=== PATIENT | male | born 1980 | race Caucasian/White ===

== ENCOUNTER 2020-06-20 18:43 | Emergency (ER) | payer SELFPAY ==
--- NOTE | 2020-06-20 20:11 | ER ---
Nurse's Notes [facility] Name: Jeff Colón Age: 39 yrs Sex: Male : 1980 Arrival Date: 06/20/2020 Time: 18:46 Bed 6 Private MD: Diagnosis: Nonspecific Skin Rash Presentation: 06/20 18:50 Chief complaint: Patient states: "bumps on whole body, ruptures with little egg things, em the more you push on them, it causes a lesion, I think I need IV antibiotics" denies fever. Coronavirus screen: Patient denies a cough. Patient denies shortness of breath or difficulty breathing. Patient denies measured and/or subjective temperature greater than 100.4F prior to today's visit. Patient denies travel on a cruise ship or to a country the [facility] currently lists as an affected area. Patient denies contact with known and/or suspected case of COVID-19. Ebola Screen: Patient negative for fever greater than or equal to 101.5 degrees Fahrenheit, and additional compatible Ebola Virus Disease symptoms Patient denies exposure to infectious person. Patient denies travel to an Ebola-affected area in the 21 days before illness onset. No symptoms or risks identified at this time. Initial Sepsis Screen: Does the patient meet any 2 criteria? HR > 90 bpm. Does the patient have a suspected source of infection? Yes: Skin breakdown/wound. Risk Assessment: Do you want to hurt yourself or someone else? Patient reports no desire to harm self or others. Onset of symptoms was June 18, 2020. 18:50 Method Of Arrival: Ambulatory em 18:50 Acuity: JERO 4 em Historical: - Allergies: 18:53 No Known Allergies; em - Home Meds: 18:53 None [Active]; em - PMHx: 18:53 None; em - Immunization history:: Adult Immunizations. - Social history:: Smoking status: Patient reports the use of cigarette tobacco products, smokes one-half pack cigarettes per day, Patient uses alcohol, occasionally. Patient/guardian denies using street drugs. Screenin:37 Abuse screen: Denies threats or abuse. Denies injuries from another. Nutritional mg2 screening: No deficits noted. Tuberculosis screening: No symptoms or risk factors identified. Fall Risk None identified. Assessment: 19:36 General: Appears in no apparent distress. comfortable, Behavior is calm, cooperative. mg2 Pain: Denies pain. Neuro: Level of Consciousness is awake, alert, obeys commands, Oriented to person, place, time, situation. Cardiovascular: Capillary refill < 3 seconds Patient's skin is warm and dry. Respiratory: Airway is patent Respiratory effort is even, unlabored, Respiratory pattern is regular, symmetrical. GI: No signs and/or symptoms were reported involving the gastrointestinal system. : No signs and/or symptoms were reported regarding the genitourinary system. EENT: No signs and/or symptoms were reported regarding the EENT system. Derm: Rash noted that is red, raised, on face. Musculoskeletal: Circulation, motion, and sensation intact. Capillary refill < 3 seconds. Vital Signs: 18:50 Pulse 110; Resp 20; Temp 98.1(O); Pulse Ox 100% on R/A; Weight 62.6 kg; Height 5 ft. 4 em in. (162.56 cm); Pain 0/10; 20:02 BP 162 / 97; mg2 20:02 Pulse 102; Resp 18; Pulse Ox 100% on R/A; mg2 18:50 Body Mass Index 23.69 (62.60 kg, 162.56 cm) em ED Course: 18:46 Patient arrived in ED. ag5 18:53 Triage completed. em 18:53 Arm band placed on. em 19:05 Jewel Lebron MD is Attending Physician. mh7 19:36 Marcelo Holley, RN is Primary Nurse. mg2 19:37 Patient has correct armband on for positive identification. Door closed. mg2 19:37 No provider procedures requiring assistance completed. mg2 20:10 Joey Melendez MD is Referral Physician. mh7 20:47 Patient did not have IV access during this emergency room visit. mg2 Administered Medications: 20:35 Drug: KeFLEX 500 mg Route: PO; ls4 20:46 Follow up: Response: No adverse reaction; Medication administered at discharge. mg2 20:37 Drug: Bactrim (160 mg-800 mg (DS) 1 tablet Route: PO; ls4 20:46 Follow up: Response: No adverse reaction; Medication administered at discharge. mg2 Outcome: 20:11 Discharge ordered by . mh7 20:47 Discharged to home ambulatory. mg2 20:47 Condition: stable 20:47 Discharge instructions given to patient, Instructed on discharge instructions, follow up and referral plans. medication usage, Demonstrated understanding of instructions, follow-up care, medications, Prescriptions given X 3. 20:47 Patient left the ED. mg2 Signatures: Quentin Miller RN RN em Marcelo Holley RN RN mg2 Keke Rabago RN RN ls4 Elise Izquierdo ag5 Jewel Lebron MD MD 7
--- NOTE | 2020-06-20 20:11 | EDPHYS ---
Physician Documentation [facility] Name: Jeff Colón Age: 39 yrs Sex: Male : 1980 Arrival Date: 06/20/2020 Time: 18:46 Bed 6 Private MD: ED Physician Jewel Lebron HPI: 06/20 19:29 This 39 yrs old Male presents to ER via Ambulatory with complaints of Rash, mh7 Skin Sore(s). 19:29 The patient's rash thought to be caused by an unknown cause. The rash is located on the mh7 face, right leg and left leg. The rash can be described as erythematous, patchy. 20:02 Onset: The symptoms/episode began/occurred 4 day(s) ago. Associated signs and symptoms: mh7 Pertinent positives: itching, Pertinent negatives: burning sensation, difficulty breathing, fever, nausea, Pain swelling of lips, swelling of throat, swelling of tongue, vomiting, wheezing. Severity of symptoms: At their worst the symptoms were mild yesterday, in the emergency department the symptoms are unchanged. Treatment given at home: none. Historical: - Allergies: 18:53 No Known Allergies; em - Home Meds: 18:53 None [Active]; em - PMHx: 18:53 None; em - Immunization history:: Adult Immunizations. - Social history:: Smoking status: Patient reports the use of cigarette tobacco products, smokes one-half pack cigarettes per day, Patient uses alcohol, occasionally. Patient/guardian denies using street drugs. ROS: 20:02 Constitutional: Negative for fever, chills, and weight loss, Eyes: Negative for injury, mh7 pain, redness, and discharge, ENT: Negative for injury, pain, and discharge, Neck: Negative for injury, pain, and swelling, Cardiovascular: Negative for chest pain, palpitations, and edema, Respiratory: Negative for shortness of breath, cough, wheezing, and pleuritic chest pain, Abdomen/GI: Negative for abdominal pain, nausea, vomiting, diarrhea, and constipation, Back: Negative for injury and pain, : Negative for injury, bleeding, discharge, and swelling, MS/Extremity: Negative for injury and deformity, Neuro: Negative for headache, weakness, numbness, tingling, and seizure, Psych: Negative for depression, anxiety, suicide ideation, homicidal ideation, and hallucinations, Allergy/Immunology: Negative for hives, rash, and allergies, Endocrine: Negative for neck swelling, polydipsia, polyuria, polyphagia, and marked weight changes. Exam: 20:02 Constitutional: This is a well developed, well nourished patient who is awake, alert, mh7 and in no acute distress. 20:02 Eyes: Pupils equal round and reactive to light, extra-ocular motions intact. Lids and lashes normal. Conjunctiva and sclera are non-icteric and not injected. Cornea within normal limits. Periorbital areas with no swelling, redness, or edema. ENT: Nares patent. No nasal discharge, no septal abnormalities noted. Tympanic membranes are normal and external auditory canals are clear. Oropharynx with no redness, swelling, or masses, exudates, or evidence of obstruction, uvula midline. Mucous membranes moist. Neck: Trachea midline, no thyromegaly or masses palpated, and no cervical lymphadenopathy. Supple, full range of motion without nuchal rigidity, or vertebral point tenderness. No Meningismus. Chest/axilla: Normal chest wall appearance and motion. Nontender with no deformity. No lesions are appreciated. Cardiovascular: Regular rate and rhythm with a normal S1 and S2. No gallops, murmurs, or rubs. Normal PMI, no JVD. No pulse deficits. Respiratory: Lungs have equal breath sounds bilaterally, clear to auscultation and percussion. No rales, rhonchi or wheezes noted. No increased work of breathing, no retractions or nasal flaring. Abdomen/GI: Soft, non-tender, with normal bowel sounds. No distension or tympany. No guarding or rebound. No evidence of tenderness throughout. Back: No spinal tenderness. No costovertebral tenderness. Full range of motion. 20:02 MS/ Extremity: Pulses equal, no cyanosis. Neurovascular intact. Full, normal range of motion. Neuro: Awake and alert, GCS 15, oriented to person, place, time, and situation. Cranial nerves II-XII grossly intact. Motor strength 5/5 in all extremities. Sensory grossly intact. Cerebellar exam normal. Normal gait. Psych: Awake, alert, with orientation to person, place and time. Behavior, mood, and affect are within normal limits. 20:02 Head/face: Noted is rash, dry, crusty. 20:02 Skin: lesion(s), noted, and can be described as nontender, papular,non erythematous, located on the right leg and left leg, rash a mild rash is noted, rash can be described as erythematous, nonspecific, dry, crusty, on the forehead, nose. Vital Signs: 18:50 Pulse 110; Resp 20; Temp 98.1(O); Pulse Ox 100% on R/A; Weight 62.6 kg; Height 5 ft. 4 em in. (162.56 cm); Pain 0/10; 20:02 BP 162 / 97; mg2 20:02 Pulse 102; Resp 18; Pulse Ox 100% on R/A; mg2 18:50 Body Mass Index 23.69 (62.60 kg, 162.56 cm) em MDM: 19:16 Patient medically screened. mh7 20:02 Differential diagnosis: impetigo, allergic reaction, erysipelas, nonspecific rash. [facility]: vital signs, nurses notes. Counseling: I had a detailed discussion with the patient and/or guardian regarding: the historical points, exam findings, and any diagnostic results supporting the discharge/admit diagnosis. Administered Medications: 20:35 Drug: KeFLEX 500 mg Route: PO; ls4 20:46 Follow up: Response: No adverse reaction; Medication administered at discharge. mg2 20:37 Drug: Bactrim (160 mg-800 mg (DS) 1 tablet Route: PO; ls4 20:46 Follow up: Response: No adverse reaction; Medication administered at discharge. mg2 Disposition: 06/20/20 20:11 Discharged to Home. Impression: Nonspecific Skin Rash. - Condition is Stable. - Discharge Instructions: Rash, [id number]. - Prescriptions for Bactroban 2 % Topical Ointment - Apply to affected area 1 application by TOPICAL route every 12 hours; 30 gram. Keflex 500 mg Oral Capsule - take 1 capsule by ORAL route every 6 hours for 10 days; 40 capsule. Bactrim DS 800- 160 mg Oral Tablet - take 1 tablet by ORAL route every 12 hours for 10 days; 20 tablet. - Medication Reconciliation Form, Thank You Letter, Antibiotic Education, Prescription Opioid Use form. - Follow up: Joey Melendez MD; When: 1 - 2 days; Reason: Worsening of condition, Recheck today's complaints, Re-evaluation by your physician. - Problem is new. - Symptoms are unchanged. Signatures: Quentin Miller, RN RN em Marcelo Holley RN RN mg2 Keke Rabago RN RN ls4 Jewel Lebron MD MD mh7 Corrections: (The following items were deleted from the chart) 20:47 20:11 06/20/2020 20:11 Discharged to Home. Impression: Nonspecific Skin Rash. Condition mg2 is Stable. Forms are Medication Reconciliation Form, Thank You Letter, Antibiotic Education, Prescription Opioid Use. Follow up: Joey Melendez; When: 1 - 2 days; Reason: Worsening of condition, Recheck today's complaints, Re-evaluation by your physician. Problem is new. Symptoms are unchanged. mh7
[2020-06-20] MEDS ORDERED: SMZ./TMP. 800/160 MG TABLET ONE (20:37)
[2020-06-20] MEDS ORDERED: CEPHALEXIN 250 MG CAP ONE (20:37)
[2020-06-21 06:25] VITALS: TEMP 98.1; O2SAT 100
[2020-06-21 06:27] VITALS: BP 162/97
== END 2020-06-20 20:47 | disposition home or self-care (01) ==
LOC: ER 18:43
DX: R21 Rash and other nonspecific skin eruption (principal); F17.210 Nicotine dependence, cigarettes, uncomplicated
CPT/HCPCS: 99283